=== PATIENT | female | born 1950 | race Caucasian/White ===

== ENCOUNTER → 2016-11-07 | Outpatient (CLI) | payer OTHER ==
[~2016-11-07] MED LIST: CALC-20 PO; DEXT1TAB50 PO; GLUC250C PO; MELO15TA3 PO; METFTAB PO; METHPOW PO; MULT-506 PO; OMEG10007 PO; OMEP40CA PO; PLMIN200 INH
[2016-11-07 13:26] LABS: ALT/SGPT 28 U/L (12-78); BLOOD UREA NITROGEN 17 mg/dl (7-18); BUN/CREATININE RATIO 21.9 (10-20); CALCIUM 8.8 mg/dl (8.5-10.1); CARBON DIOXIDE 27 mmol/L (21-32); CHLORIDE 106 mmol/L (98-107); CREATININE 0.78 mg/dl (0.60-1.20); GLUCOSE 104 mg/dl (70-99); POTASSIUM 3.8 mmol/L (3.5-5.1); SODIUM 141 mmol/L (136-145)
[2016-11-07 13:39] LABS: ALB/GLOB RATIO 0.9 (0.9-2); ALKALINE PHOSPHATASE 76 U/L (45-117); AST/SGOT 17 U/L (15-37); CHOLESTEROL 226 mg/dl (0-200); CHOLESTEROL/HDL RATIO 2.9; HDL CHOLESTEROL 78 mg/dl; LDL CHOLESTEROL CALCULATED 116 mg/dl; TRIGLYCERIDES 159 mg/dl (0-150); VERY LOW DENSITY LIPOPROT CALC 32 mg/dl
[2016-11-07 13:47] LABS: ESTIMATED AVERAGE GLUCOSE 131 mg/dl; HA1C FLAG Normal (Normal)
== END | disposition home or self-care (01) ==
LOC: C.LABPBG 07:47
PROVIDERS: ATTEND Internal Medicine
DX: Z00.00 Encounter for general adult medical examination without abnormal findings (principal); E11.9 Type 2 diabetes mellitus without complications; R03.0 Elevated blood-pressure reading, without diagnosis of hypertension

== ENCOUNTER → 2017-02-02 | Outpatient (CLI) | payer OTHER ==
--- NOTE | 2017-02-02 11:58 | DIAGNOSTIC IMAGING REPORT ---
LEFT FOOT MIN 3 VIEWS ROUTINE CLINICAL HISTORY: Left foot pain COMPARISON: None. DISCUSSION: No fractures or dislocations are visualized. There is no erosive disease. There is a small plantar calcaneal spur. There are minor degenerative changes. IMPRESSION: 1. No evidence of fracture 2. No evidence of erosive disease 3. Minor degenerative changes Electronically signed by: David Samuel M.D. 02/02/2017 11:56 AM Dictated Date/Time: 02/02/2017 11:56 AM
== END | disposition home or self-care (01) ==
LOC: C.RADBC 11:38
PROVIDERS: ATTEND Physician Assistant Medical
DX: M79.673 Pain in unspecified foot (principal)

== ENCOUNTER → 2017-03-07 | Outpatient (CLI) | payer OTHER ==
--- NOTE | 2017-03-07 10:01 | DIAGNOSTIC IMAGING REPORT ---
LUMBAR SPINE MRI HISTORY: Pain LOW BACK PAIN TECHNIQUE: Multiplanar multisequence MRI of the lumbar spine was performed without the use of contrast. COMPARISON: None. FINDINGS: For the purpose of the report the L5-S1 disc space will be located on axial image 27 of 30. Considerable degenerative disc change throughout the entire lumbar region. This is most prominent from L2 L2-L5. No evidence for compression deformity. Reactive edema of the associated vertebral endplates. L1-L2: No significant central canal or neural foraminal narrowing. L2-L3: Mild broad-based disc bulge. Minimal impact anterior thecal sac. Minimal narrowing neuroforamina L3-L4: Minimal left lateral disc bulge with mild narrowing of the left neural foramina. L4-L5: Broad-based bulging disc. Mild impact anterior thecal sac. Mild narrowing of the neuroforamina bilaterally. Mild edematous changes left L4 nerve root. L5-S1: Mild broad-based disc bulge. No significant impact on the thecal sac. Mild edematous change left L5 nerve root. IMPRESSION: 1. Considerable degenerative change throughout the intervertebral discs of the entire lumbar region. 2. Mild disc bulges at virtually all levels of lumbar region with mild narrowing of the neuroforamina bilaterally throughout. 3. Mild reactive edematous change of the left L4 and L5 nerve roots possibly secondary to bulging disc components. 4. No evidence for a major component of spinal stenosis or major disc herniation. Electronically signed by: Zackery Atkinson M.D. 03/07/2017 10:00 AM Dictated Date/Time: 03/07/2017 9:54 AM
== END | disposition home or self-care (01) ==
LOC: C.MRIBC 08:41
PROVIDERS: ATTEND Physician Assistant Medical
DX: M54.5 Low back pain (principal); M51.36 Other intervertebral disc degeneration, lumbar region

== ENCOUNTER → 2017-09-14 | Outpatient (CLI) | payer OTHER ==
--- NOTE | 2017-09-14 09:44 | DIAGNOSTIC IMAGING REPORT ---
ABDOMEN COMPLETE (US) HISTORY: Pain. Nausea. R10.13 Abdominal pain, [id number]. COMPARISON: 11/17/2006 FINDINGS: Pancreas: The pancreas demonstrates a normal echotexture. Liver: Fatty infiltration Gallbladder: No gallbladder wall thickening. No gallstones. CBD: 4 mm Kidneys: No hydronephrosis. Spleen: Normal in size. Aorta: Normal in caliber. IVC: Patent. IMPRESSION: Fatty infiltration of liver. Otherwise negative study. The above report was generated using voice recognition software. It may contain grammatical, syntax or spelling errors. Electronically signed by: Zackery Atkinson M.D. 09/14/2017 9:42 AM Dictated Date/Time: 09/14/2017 9:41 AM
--- NOTE | 2017-09-14 09:46 | DIAGNOSTIC IMAGING REPORT ---
CHEST 2 VIEWS ROUTINE HISTORY: Chest pressure. COMPARISON: None. FINDINGS: The lungs are clear. Cardiac silhouette is normal in size. No pleural effusions. No pneumothorax. IMPRESSION: No acute process. Electronically signed by: Kyaw Meneses M.D. 09/14/2017 9:45 AM Dictated Date/Time: 09/14/2017 9:42 AM
[2017-09-14 13:38] LABS: BLOOD UREA NITROGEN 19 mg/dl (7-18); BUN/CREATININE RATIO 21.9 (10-20); CARBON DIOXIDE 30 mmol/L (21-32); CHLORIDE 104 mmol/L (98-107); CHOLESTEROL 243 mg/dl (0-200); CREATININE 0.86 mg/dl (0.60-1.20); GLUCOSE 115 mg/dl (70-99); POTASSIUM 3.9 mmol/L (3.5-5.1); SODIUM 138 mmol/L (136-145); TRIGLYCERIDES 99 mg/dl (0-150); VERY LOW DENSITY LIPOPROT CALC 20 mg/dl
[2017-09-14 13:41] LABS: CHOLESTEROL/HDL RATIO 2.9; HDL CHOLESTEROL 85 mg/dl; LDL CHOLESTEROL CALCULATED 138 mg/dl
[2017-09-15 06:15] LABS: ESTIMATED AVERAGE GLUCOSE 134 mg/dl; HA1C FLAG Normal (Normal)
== END | disposition home or self-care (01) ==
LOC: C.ULTRBC 08:39
PROVIDERS: ATTEND Physician Assistant Medical
DX: R10.13 Epigastric pain (principal); R07.89 Other chest pain; E11.9 Type 2 diabetes mellitus without complications; M54.16 Radiculopathy, lumbar region; I10 Essential (primary) hypertension

== ENCOUNTER → 2017-11-13 | Outpatient (CLI) | payer OTHER ==
[2017-11-13 12:52] LABS: HEMOGLOBIN A1C 6.4 % (4.5-5.6)
[2017-11-13 13:27] LABS: ALBUMIN 3.6 gm/dl (3.4-5.0); ALT/SGPT 28 U/L (12-78); BLOOD UREA NITROGEN 20 mg/dl (7-18); CARBON DIOXIDE 28 mmol/L (21-32); CREATININE 0.98 mg/dl (0.60-1.20); GLUCOSE 113 mg/dl (70-99); POTASSIUM 3.9 mmol/L (3.5-5.1); SODIUM 138 mmol/L (136-145)
[2017-11-13 13:38] LABS: ALKALINE PHOSPHATASE 75 U/L (45-117); AST/SGOT 19 U/L (15-37); TOTAL PROTEIN 7.7 gm/dl (6.4-8.2)
== END | disposition home or self-care (01) ==
LOC: C.LABPBG 07:57
PROVIDERS: ATTEND Internal Medicine
DX: M54.16 Radiculopathy, lumbar region (principal); E78.5 Hyperlipidemia, unspecified